=== PATIENT | female | born 1940 | race Caucasian/White ===

== ENCOUNTER → 2016-12-10 | Outpatient (CLI) | payer BC ==
[~2016-12-10] MED LIST: ASPI1TAB83 PO; CALC200T PO; CHOL20005 PO; ESCI1TAB6 PO; FISH1CAP3 PO; GLUCTAB7 PO; LEVO50TA6 PO; OFLO0.3S OPR; PRED1SUS3 OPR; ZOLP5TAB6 PO
[2016-12-11 06:13] LABS: ESTIMATED AVERAGE GLUCOSE 154 mg/dl; HA1C FLAG Normal (Normal)
--- NOTE | 2016-12-15 10:05 | CODING QUERY MEDICAL NECESSITY ---
SUPPORTING DIAGNOSIS NEEDED A supporting diagnosis is required for the test/procedure performed on this patient in order for us to be reimbursed by the patient's insurance. Please provide a supporting diagnosis for the following test/procedure listed below next to the test name along with your signature. *If there is no additional diagnosis for this patient that would support the following test/procedure please document that below next to the test/procedure. Test(s)/Procedure(s) that require a supporting diagnosis: * GLYCATED HEMOGLOBIN DIAGNOSIS: * DOS: 12/10/16 Provider Signature: Date: Thank you Radha Haile Health Information Management Once completed, please kindly fax back to [phone] For questions please call [phone]
== END | disposition home or self-care (01) ==
LOC: C.LABBC 12:20
PROVIDERS: ATTEND Internal Medicine
DX: M54.30 Sciatica, unspecified side (principal); E11.9 Type 2 diabetes mellitus without complications

== ENCOUNTER → 2016-12-16 | Outpatient (CLI) | payer BC | END | disposition home or self-care (01) | LOC: C.LAB1850 12:50 | PROVIDERS: ATTEND Internal Medicine | DX: E03.9 Hypothyroidism, unspecified (principal) ==

== ENCOUNTER → 2017-03-16 | Outpatient (CLI) | payer BC ==
[2017-03-16 14:02] LABS: ESTIMATED AVERAGE GLUCOSE 154 mg/dl; HA1C FLAG Normal (Normal)
== END | disposition home or self-care (01) ==
LOC: C.LABBC 11:59
PROVIDERS: ATTEND Internal Medicine
DX: E11.9 Type 2 diabetes mellitus without complications (principal)

== ENCOUNTER → 2017-04-02 | Outpatient (CLI) | payer BC ==
--- NOTE | 2017-04-02 12:35 | DIAGNOSTIC IMAGING REPORT ---
MRI LUMBAR SPINE WITHOUT IV CONTRAST CLINICAL HISTORY: Chronic low back pain. Right lower extremity radiculopathy. COMPARISON STUDY: Radiographs of the lumbar spine dated 04/24/2015. MRI of the lumbar spine dated 09/15/2008. TECHNIQUE: MRI of the lumbar spine is performed utilizing various T1 and T2 weighted sequences in the axial and sagittal planes. IV contrast was not administered for this examination. FINDINGS: Lumbar spine: Vertebral body height is maintained throughout the lumbar spine. There is normal anterolisthesis at L4-L5. Alignment is otherwise preserved. No destructive bony lesion is seen. The transverse and spinous processes are intact as visualized. There is no evidence of spondylolysis. Advanced chronic degenerative endplate change and sclerosis is seen at L2-L3. Mild chronic degenerative endplate change is present at L4-L5 and L5-S1. Mild marrow edema is seen at L2-L3. Intervertebral discs: Degenerative disc desiccation is seen throughout the lumbar spine. There is advanced loss of height at L2-L3 and moderate loss of height at L3-L4. Only mild loss of height is seen at the remaining disc levels. Spinal cord: The visualized spinal cord is normal in morphology and signal intensity. The conus medullaris terminates at the level of L1. The nerve roots of the cauda equina are normal in morphology. L1-L2: Unremarkable. L2-L3: There is broad-based posterior disc bulge eccentric to the left. This causes left-sided subarticular stenosis and may abut the exiting left L2 nerve root. There is no significant acquired compromise of the central canal at this level. The neural foramina are patent. L3-L4: There is broad-based posterior disc bulge. In conjunction with hypertrophy of the ligamentum flavum this causes mild central canal stenosis at this level. The minimum AP canal diameter measures 8.5 mm. There is bilateral subarticular stenosis. The disc bulge may abut the transiting bilateral L4 nerve roots. Facet arthropathy is of no consequence. L4-L5: There is broad-based posterior disc bulge with annular fissure. In conjunction with hypertrophy of the ligamentum flavum there is minimal acquired compromise of the central canal at this level with a minimum AP diameter of 7.5 mm. There is bilateral subarticular stenosis. The neural foramina are clear. Facet arthropathy is of no consequence. L5-S1: There is minimal disc bulge eccentric to the right. The central canal and neural foramina are patent. Facet arthropathy is of no consequence. Sacrum: Visualized sacrum is normal in morphology and signal intensity. A hemangioma is suggested in the medial left ilium. Soft tissues: There is fatty atrophy of the paraspinous musculature. The kidneys demonstrate mild cortical atrophy. The retroperitoneal structures are otherwise grossly unremarkable although incompletely assessed. IMPRESSION: 1. Lumbosacral spondylosis as above with mild acquired compromise of the central canal at L3-L4 and L4-L5. This has minimally progressed from the 2008 examination. 2. See discussion for detailed level by level analysis. 3. Degenerative disc disease as above with chronic endplate change and marrow edema seen at L2-L3. 4. No destructive bony lesion is seen. Dictated: 04/02/2017 10:22 AM Transcribed: 04/02/2017 12:35 PM [email or web address] Electronically signed by: Samuel Bojorquez M.D. 04/02/2017 12:36 PM Dictated Date/Time: 04/02/2017 10:22 AM
== END | disposition home or self-care (01) ==
LOC: C.MRI 09:32
PROVIDERS: ATTEND Internal Medicine
DX: M54.41 Lumbago with sciatica, right side (principal); M47.897 Other spondylosis, lumbosacral region; M51.36 Other intervertebral disc degeneration, lumbar region

== ENCOUNTER → 2017-06-16 | Outpatient (CLI) | payer BC ==
[2017-06-16 13:59] LABS: ESTIMATED AVERAGE GLUCOSE 154 mg/dl; HA1C FLAG Normal (Normal)
== END | disposition home or self-care (01) ==
LOC: C.LABBC 09:45
PROVIDERS: ATTEND Internal Medicine
DX: E11.9 Type 2 diabetes mellitus without complications (principal)

== ENCOUNTER → 2017-07-16 | Outpatient (CLI) | payer BC ==
--- NOTE | 2017-07-17 07:44 | MAMMOGRAPHY REPORT ---
BILATERAL DIGITAL SCREENING MAMMOGRAM WITH CAD: 07/16/2017 CLINICAL HISTORY: Routine screening. Patient has no complaints. TECHNIQUE: Current study was also evaluated with a Computer Aided Detection (CAD) system. Bilateral CC and MLO views were obtained. COMPARISON: Comparison is made to exams dated: 07/09/2016 mammogram, 07/03/2015 mammogram, 06/29/2014 ilya mogram, 06/28/2013 mammogram, 06/23/2012 mammogram, and 06/11/2011 mammogram - [facility] er. BREAST COMPOSITION: There are scattered areas of fibroglandular density in both breasts. FINDINGS: No suspicious masses, calcifications, or areas of architectural distortion are noted in ei ther breast. There has been no significant interval change compared to prior exams. Scattered bilater al benign-appearing calcifications are not significantly changed. IMPRESSION: ACR BI-RADS CATEGORY 2: BENIGN There is no mammographic evidence of malignancy. A 1 year screening mammogram is recommended. The pa tient will receive written notification of the results. Approximately 10% of breast cancers are not detected with mammography. A negative mammographic report should not delay biopsy if a clinically suggestive mass is present. Aliya Jimenez M.D. ah/:07/16/2017 16:54:43 Package Delivery Room Service Runner: Maya CHIRINOS(R)(M), [facility] letter sent: Normal 1/2 BI-RADS Code: ACR BI-RADS Category 2: Benign
== END | disposition home or self-care (01) ==
LOC: C.MAMM 15:30
PROVIDERS: ATTEND Internal Medicine
DX: Z12.31 Encounter for screening mammogram for malignant neoplasm of breast (principal)

== ENCOUNTER → 2017-11-30 | Outpatient (CLI) | payer BC ==
[2017-11-30 13:27] LABS: BASO % 0.4 %; BASO ABS # 0.03 K/uL (0-0.2); EOS % 4.4 %; EOS ABS # 0.35 K/uL (0-0.5); HEMATOCRIT 42.6 % (37-47); HEMOGLOBIN 14.2 g/dL (12.0-16.0); IG# 0.02 K/uL (0.00-0.02); LYMPH % 30.3 %; MEAN CELL VOLUME 89.5 fL (80-100); MEAN CORPUSCULAR HEMOGLOBIN 29.8 pg (25-34); MEAN CORPUSCULAR HGB CONC 33.3 g/dl (32-36); MEAN PLATELET VOLUME 10.2 fL (7.4-10.4); MONO % 8.5 %; MONO ABS # 0.67 K/uL (0.11-0.59); NEUT % 56.1 %; NEUT ABS # 4.45 K/uL (1.4-6.5); PLATELET COUNT 247 K/uL (130-400); RED CELL DISTRIBUTION WIDTH CV 12.8 % (11.5-14.5); RED CELL DISTRIBUTION WIDTH SD 41.9 fL (36.4-46.3); WHITE BLOOD COUNT 7.92 K/uL (4.8-10.8)
[2017-11-30 13:37] LABS: HEMOGLOBIN A1C 7.3 % (4.5-5.6)
[2017-11-30 14:32] LABS: BLOOD UREA NITROGEN 16 mg/dl (7-18); CALCIUM 9.9 mg/dl (8.5-10.1); CARBON DIOXIDE 27 mmol/L (21-32); CREATININE 0.83 mg/dl (0.60-1.20); GLUCOSE 153 mg/dl (70-99); POTASSIUM 4.3 mmol/L (3.5-5.1); SODIUM 135 mmol/L (136-145)
[2017-11-30 14:44] LABS: CHOLESTEROL 163 mg/dl (0-200); LDL CHOLESTEROL CALCULATED 83 mg/dl
== END | disposition home or self-care (01) ==
LOC: C.LABBC 09:55
PROVIDERS: ATTEND Internal Medicine
DX: E11.9 Type 2 diabetes mellitus without complications (principal)

== ENCOUNTER → 2017-12-07 | Outpatient (CLI) | payer BC ==
--- NOTE | 2017-12-07 08:52 | DIAGNOSTIC IMAGING REPORT ---
GI SERIES W/AIR ROUTINE CLINICAL HISTORY: R13.19 Intermittent [id number] COMPARISON STUDY: None. FLUOROSCOPY TIME: 1.6 minutes. 23 fluoroscopic spot images. FINDINGS: The patient swallowed barium without difficulty. Small hiatus hernia. No significant gastroesophageal reflux demonstrated during the examination. The esophagus is normal in course and caliber. No gastric ulcerations. The duodenal bulb and duodenal C sweep are within normal limits. IMPRESSION: Small hiatus hernia. Electronically signed by: Kyle Ruiz M.D. 12/07/2017 8:51 AM Dictated Date/Time: 12/07/2017 8:50 AM
== END | disposition home or self-care (01) ==
LOC: C.RAD 07:54
PROVIDERS: ATTEND Internal Medicine
DX: R13.19 Other dysphagia (principal)

== ENCOUNTER → 2017-12-11 | Outpatient (CLI) | payer BC ==
--- NOTE | 2017-12-11 09:15 | DIAGNOSTIC IMAGING REPORT ---
(BARIUM SWALLOW) ESOPHAGUS CLINICAL HISTORY: R13.19 Intermittent [id number] COMPARISON STUDY: 12/07/2017 FLUOROSCOPY TIME: 1.6 minutes. FINDINGS: Patient initiated swallowing function well. No evidence for aspiration. Mild esophageal irritability. Small hiatal hernia. Moderate gastroesophageal reflux. Patient ingested the barium tablet easily which passed easily to the stomach. IMPRESSION: 1. Mild esophageal spasm and/or irritability. 2. Small hiatal hernia. 3. Moderate gastroesophageal reflux The above report was generated using voice recognition software. It may contain grammatical, syntax or spelling errors. Electronically signed by: Femi España M.D. 12/11/2017 9:14 AM Dictated Date/Time: 12/11/2017 9:12 AM
== END | disposition home or self-care (01) ==
LOC: C.RAD 08:21
PROVIDERS: ATTEND Internal Medicine
DX: R13.19 Other dysphagia (principal); K44.9 Diaphragmatic hernia without obstruction or gangrene; K21.9 Gastro-esophageal reflux disease without esophagitis

== ENCOUNTER 2019-05-23 08:26 | Observation (INO) ==
--- NOTE | 2019-05-11 13:36 | Anesthesiology Consultation ---
Date of Service May 11, 2019 Assessment & Plan (1) Encounter for pre-operative examination: Chart Review Chart Review: Acceptable Risk for Surgery and Patient seen in Pre Admission Testing Teaching & Discussion Instructed NPO after midnight before surgery, except medications with 15 cc of water. Medication instructions provided according to the PAT guidelines. History Surgery Operation Date: 05/23/19 10:00 Proposed Procedures p Left Open Inguinal Hernia Repair - Rene Matias MD, FACS Height/Weight Height: 5 ft 3 in Weight: 73.8 kg Allergies Allergy/AdvReac Type Severity Reaction Status Date / Time No Known Allergies Allergy Verified 05/09/19 15:13 Medications Home Medications Medication Instructions Recorded Confirmed Last Taken aspirin [Aspir-81] 81 mg PO QAM 03/14/19 05/09/19 03/25/19 08:00 calcium carbonate [Calcium 600] 600 mg PO QAM 03/14/19 05/09/19 03/25/19 08:00 diazepam 2.5 mg PO BID PRN 03/14/19 05/09/19 03/25/19 22:00 escitalopram oxalate 20 mg PO BID 03/14/19 05/09/19 02/25/19 22:00 glucosamine sulfate [Glucosamine] 500 mg PO QAM 03/14/19 05/09/19 03/25/19 08:00 levothyroxine 88 mcg PO QAM 03/14/19 05/09/19 03/25/19 08:00 trazodone 50 mg PO HS 03/14/19 05/09/19 03/27/19 22:00 Past Medical History Medical History Anxiety Cancer BCC Depression Hypothyroidism Osteoarthritis Type 2 diabetes mellitus A1C 6.9%, no medications, diet managed Exercise / Class Metabolic Activity II 4-5 Yardwork/Stairs/Walk up hill (Pt is very active at home, denies CP or SOB with 1 FOS) Past Family History Family History Mother Family history of diabetes mellitus Past Surgical History Surgical History History of appendectomy History of cataract surgery RT/LEFT History of colonoscopy History of laparoscopy OVARIAN CYSTECTOMY History of repair of rotator cuff RT History of tooth extraction Past Anesthesia History No Hx of Anesthesia Complications and No Family Hx of Anesthesia Complications History of PONV No Hx of PONV and No Hx of Motion Sickness Social History Smoking Status: Never smoker Do You Dip or Chew Tobacco: No Hx Alcohol Use: No Hx Substance Use: No substance use type: does not use Review of Systems Pt denies any recent chest pain, shortness of breath, palpitations, cough, fever or URI. Physical Exam Vital Signs BP: 97/55 (pt reports this is somewhat low for her, usually systolic 110-120, but denies symptoms) P: 67bpm SPO2: 95% RA T: 98.1 F R: 16 ENMT Mouth: + dental bridge and + dental restorations (several caps); no dentures, no chipped teeth and no loose teeth Thyromental Distance: > or= 3.5 Finger Breadths (3.5) Mallampati Class: III Neck + short neck; neck extension not limited Respiratory normal respiratory effort Auscultation: lungs clear to auscultation bilaterally Cardiovascular Rate/Rhythm: regular rate and regular rhythm Heart Sounds: no murmur Vessels: no carotid bruit Extremities: no edema Testing Laboratory Results 04/21/19 WBC: 6.30 H/H: 13.5/41.4 PLATELETS: 246 SODIUM: 139 POTASSIUM: 4.4 CHLORIDE: 106 CO2: 26 BUN: 21 CREATININE: 0.83 GLUCOSE: 120 A1C: 6.9% Electrocardiogram Date: 05/11/19 Findings: + NSR @ (63) Left axis deviation. Compared to 2012 EKG, no significant change.
--- NOTE | 2019-05-11 13:36 | PAT Medication Instructions ---
Medication Instructions Date of Service May 11, 2019 Home Medications aspirin [Aspir-81] 81 mg PO QAM calcium carbonate [Calcium 600] 600 mg PO QAM diazepam 2.5 mg PO BID PRN escitalopram oxalate 20 mg PO BID glucosamine sulfate [Glucosamine] 500 mg PO QAM levothyroxine 88 mcg PO QAM trazodone 50 mg PO HS ASK your surgeon for instructions aspirin [Aspir-81] 81 mg PO QAM STOP taking 2 weeks before surgery glucosamine sulfate [Glucosamine] 500 mg PO QAM DO NOT take the morning of surgery calcium carbonate [Calcium 600] 600 mg PO QAM Take morning of surgery With a small sip of water, OTHERWISE NOTHING TO EAT OR DRINK AFTER MIDNIGHT: escitalopram oxalate 20 mg PO BID levothyroxine 88 mcg PO QAM Take evening before surgery diazepam 2.5 mg PO BID PRN escitalopram oxalate 20 mg PO BID trazodone 50 mg PO HS Other Notes If you have any questions please call us at [phone] or [phone] or [phone] or [phone]
[~2019-05-23 08:26] MED LIST changes: -ASPI1TAB83 PO; -CALC200T PO; +CEFAZOLIN 2000MG 2,000 MG/15 ML SYR IV SCH; -CHOL20005 PO; -ESCI1TAB6 PO; -FISH1CAP3 PO; -GLUCTAB7 PO; -LEVO50TA6 PO; +LR 15ML/HR IV SCH; -OFLO0.3S OPR; -PRED1SUS3 OPR; -ZOLP5TAB6 PO
[2019-05-23] MEDS ORDERED: HYDROmorphone INJ 1 MG/ML SYRINGE IV PRN (08:51)
[2019-05-23] MEDS ORDERED: ePHEDrine sulfate 50 MG/ML AMP IV PRN (08:51)
[2019-05-23] MEDS ORDERED: ATROPINE SULFATE 0.1 MG/ML 10ML SYR IV PRN (08:51)
[2019-05-23] MEDS ORDERED: ONDANSETRON INJ 2 MG/ML 2 ML VIAL IV PRN ×2 (08:51→12:23)
[2019-05-23] MEDS ORDERED: fentaNYL citrate 100 MCG/2 ML VIAL IV PRN (08:51)
[2019-05-23] MEDS ORDERED: fentaNYL citrate 100 MCG/2 ML VIAL ONE (09:04)
[2019-05-23] MEDS ORDERED: BUPIVACAINE 0.5 % 5 MG/1 ML MPF 30ML VIAL ONE (10:02)
[2019-05-23] MEDS ORDERED: LIDOCAINE HCL 1% 20 ML VIAL ONE (10:03)
[2019-05-23] MEDS ORDERED: CEFAZOLIN 250 MG/ML 1 GM VIAL ONE (10:03)
--- NOTE | 2019-05-23 10:09 | History & Physical Bridge Note ---
Date of Service May 23, 2019 History & Physical Bridge Note I have examined the patient, reviewed the History & Physical and in the interval since the performance of the History & Physical I have noted the following changes of clinical significance: no changes noted
[2019-05-23] MEDS ORDERED: PROPOFOL IV EMULSION 10 MG/ML 20 ML VIAL IV ONE (10:30)
[2019-05-23] MEDS ORDERED: ONDANSETRON INJ 2 MG/ML 2 ML VIAL ONE (10:30)
[2019-05-23] MEDS ORDERED: LIDOCAINE HCL 2% 2 ML VIAL/AMP(20MG/ML) INFIL ONE (10:30)
[2019-05-23] MEDS ORDERED: DEXAMETHASONE SOD INJ 4 MG/ML VIAL ONE (10:30)
--- NOTE | 2019-05-23 11:08 | Operative Report ---
Post Operative Report Pre & Post Diagnosis Operation Date: 05/23/19 10:00 Pre-Op Diagnosis: Left Inguinal Hernia Post-Op Diagnosis: Left Inguinal Hernia- indirect defect Procedure Operation Date: 05/23/19 10:00 Actual Procedures p Left Open Inguinal Hernia Repair(Left) - Rene Matias MD, FACS Surgeon Rene Matias MD, FACS Electrical Instrument Repairer Juan Luis De La Torre Estimated Blood Loss 10 Findings Consistent with Post-Op Diagnosis Specimens none Description of Procedure see dictation I attest to the content of the Intraoperative Record and any orders documented therein. Any exceptions are noted below.
[2019-05-23] MEDS ORDERED: ACETAMINOPHEN 1,000 MG/100 ML VIAL IV ONE (11:13)
[2019-05-23] MEDS ORDERED: ACETAMINOPHEN 1000 MG/100 ML IV IV ONE (11:37)
[2019-05-23] MEDS ORDERED: PROMETHAZINE HCL 12.5 MG in SODIUM CHLORIDE 0.9% 50 ML IV PRN (12:23)
[2019-05-23] MEDS ORDERED: HYDROmorphone INJ 0.5 MG/0.5 ML SYR IV PRN (12:23)
[2019-05-23] MEDS ORDERED: SODIUM CHLORIDE 0.9% 1000ML 1,000 ML IV SCH (12:23)
[2019-05-23] MEDS ORDERED: HYDROCODONE/ACETAMOPHEN 5/325MG TAB PO PRN ×2 (12:23)
--- NOTE | 2019-05-23 13:59 | Anesthesiology Progress Note ---
Date of Service May 23, 2019 Anesthesia Post Procedure Vital Signs Vital Signs: Temp Pulse Pulse Resp BP BP Pulse Ox 05/23/19 13:16 36.7 C 75 16 112/58 L 97 05/23/19 12:45 74 15 137/58 L 98 05/23/19 12:15 36.5 C 78 16 124/68 94 05/23/19 12:00 76 16 135/66 99 05/23/19 11:45 36.5 C 76 16 143/65 H 100 05/23/19 11:35 81 16 139/68 100 05/23/19 11:25 79 16 144/68 H 100 05/23/19 11:19 36.0 C L 77 16 138/67 100 05/23/19 08:55 36.6 C 68 18 139/92 98 Transfer of Care Handoff Completed per policy Notes Mental Status: alert / awake / arousable and participated in evaluation Patient Amnestic to Procedure: Yes Nausea / Vomiting: adequately controlled Pain: adequately controlled Airway Patency, RR, SpO2: stable & adequate BP & HR: stable & adequate Hydration State: stable & adequate Anesthetic Complications: no major complications apparent and Pt Satisfied with anesthetic care
[2019-05-23] MEDS ORDERED: GLUCAGON FOR INJ 1 MG VIAL SQ PRN (16:17)
[2019-05-23] MEDS ORDERED: GLUCOSE 10 TABS/TUBE PO PRN (16:17)
[2019-05-23] MEDS ORDERED: GLUCOSE 40% GEL 15 GM TUBE PO PRN (16:17)
[2019-05-23] MEDS ORDERED: DEXTROSE 50% 50 ML SYRINGE IV PRN (16:17)
[2019-05-23] MEDS ORDERED: CARBOHYDRATES FOR HYPOGLYCEMIA PO PRN (16:17)
--- NOTE | 2019-05-23 16:17 | Hospitalist Consultation ---
Date of Consultation May 23, 2019 Assessment & Plan (1) Depression: For the patient's depression she states lesser Lexapro 20. Although diazepam is listed on her medication when she does not take it very often. She takes trazodone for sleep (2) Hypothyroidism: She appears clinically euthyroid, TSH and thyroxine were both checked in March and are in good condition continue Synthroid 88 mcg a day (3) Prediabetes: Patient has prediabetes listed on her problem list, last hemoglobin A1c in March was 6.9 she is diet controlled at this point time will make sure she is a diabetic diet have a very loose sliding scale ordered case her blood glucoses go over 180 current postoperative glucoses are 120 (4) DVT prophylaxis: Current DVT prophylaxis will be SCDs and early ambulation History of Present Illness Attending Physician: Rene Matias MD, FACS 05/23/19 Anesthesia Type: General Left Open Inguinal Hernia Repair Surgeon: Rene Matias History of Present Illness We have been asked to see this patient in the postoperative period for medical management. This patient suffers from depression hypothyroidism some insomnia and hypothyroidism. She does not tolerate her procedure very well and he has minimal discomfort she is awake alert her is at the bedside in no particular questions at this time Allergies Allergy/AdvReac Type Severity Reaction Status Date / Time No Known Allergies Allergy Verified 05/23/19 08:52 Home Medications Home Medications Medication Instructions Recorded Confirmed Type aspirin [Aspir-81] 81 mg PO QAM 03/14/19 05/23/19 History calcium carbonate [Calcium 600] 600 mg PO QAM 03/14/19 05/23/19 History diazepam 2.5 mg PO BID PRN 03/14/19 05/23/19 History escitalopram oxalate 20 mg PO BID 03/14/19 05/23/19 History glucosamine sulfate [Glucosamine] 500 mg PO QAM 03/14/19 05/23/19 History levothyroxine 88 mcg PO QAM 03/14/19 05/23/19 History trazodone 50 mg PO HS 03/14/19 05/23/19 History cephalexin [Keflex] 500 mg PO TID #15 cap 05/23/19 Rx hydrocodone-acetaminophen [Winter] 1 - 2 tab PO Q6H PRN #30 tab 05/23/19 Rx Patient History Medical History Anxiety Cancer BCC Depression Hypothyroidism Osteoarthritis Type 2 diabetes mellitus A1C 6.9%, no medications, diet managed Surgical History History of appendectomy History of cataract surgery RT/LEFT History of colonoscopy History of laparoscopy OVARIAN CYSTECTOMY History of repair of rotator cuff RT History of tooth extraction Family History Mother Family history of diabetes mellitus Social History Preferred Language: Yakut Communication Ability: Effective Fountain Clerk Required: No Beliefs That Will Affect Care: None Current Living Situation: Spouse Other Information That Helps Us Care for You: No Feels Safe at Home: Yes Safety Concerns: Feels Safe At This Time Smoking Status: Never smoker Do You Dip or Chew Tobacco: No Second Hand Exposure: No Tobacco Cessation Education Requested by Patient: No Hx Alcohol Use: No Hx Substance Use: No Review of Systems Review of Systems: ROS: well nourished well developed. No double vision blurry vision No problems with speech or swallowing No palpitations, chest pain or pressure No Wheezing or breathing issues Mild left lower quadrant abdominal pain which is dull without nausea vomiting No burning urine urine frequency or changes in color No focal joint pain or muscle pain No skin rashes or oral lesions No unusual bruising or bleeding No focused back pain or numbness or loss of strength No changes in memory or confusion Physical Exam Physical Exam: The patient appeared well nourished and normally developed. Vital signs as documented. Head exam is unremarkable. normocephalic, atraumatic Neck is without jugular venous distension, thyromegaly, or lymphademopathy Lungs are clear to auscultation and percussion. Cardiac exam reveals Rhythm is regular. First and second heart sounds normal. Abdominal exam reveals normal bowel sounds, the dressing in the left lower quadrant her abdomen is otherwise without bruising soft Extremities are nonedematous and both pedal pulses are present Neurologic exam is A&Ox3, no focal deficits, strength is equal bilateral Psychologically seems neither anxious or depressed Skin is warm Dry without bruises or lesions Results & Data Vital Signs (Past 12 Hours) Vital Signs Temp Pulse Pulse Resp BP BP Pulse Ox 05/23/19 15:20 36.8 C 74 18 104/63 94 05/23/19 14:14 36.6 C 74 16 105/59 L 95 05/23/19 13:16 36.7 C 75 16 112/58 L 97 05/23/19 12:45 74 15 137/58 L 98 05/23/19 12:15 36.5 C 78 16 124/68 94 05/23/19 12:00 76 16 135/66 99 05/23/19 11:45 36.5 C 76 16 143/65 H 100 05/23/19 11:35 81 16 139/68 100 05/23/19 11:25 79 16 144/68 H 100 05/23/19 11:19 36.0 C L 77 16 138/67 100 05/23/19 08:55 36.6 C 68 18 139/92 98 PG Care Time/CCT Total # of Minutes Spent Total Time Spent with Patient: Total time spent is greater than 50% in coordination of care (as documented) at patient's floor/unit and/or counseling patient:
[2019-05-23] MEDS: ACETAMINOPHEN 325 MG TAB PO PRN (17:18)
[2019-05-23] MEDS: INSULIN ASPART 100 UNITS/ML 3 ML PEN SC SCH ×2 (17:21→20:44)
[2019-05-23] MEDS: CEFAZOLIN 1000MG 1,000 MG/7.5 ML SYR IV SCH (18:45)
[2019-05-23] MEDS: DOCUSATE SODIUM/SENNA 50/8.6MG TAB PO SCH (20:32)
--- NOTE | 2019-05-23 20:35 | Operative Report ---
DATE OF OPERATION: 05/23/2019 DATE OF OPERATION: 05/23/2019 NAME OF OPERATION: Open left inguinal hernia repair. PREOPERATIVE DIAGNOSIS: Left inguinal hernia. POSTOPERATIVE DIAGNOSIS: Left inguinal hernia with indirect defect. STAFF SURGEON: Rene Matias MD. MEDIA MARKETING MANAGER: Joel De La Torre PA-C ANESTHESIA: General. PROCEDURE: The patient was brought in the operating room and placed on the operating table in supine position. Her lower abdomen was prepped and draped in usual fashion. A 0.5% plain Marcaine was used to anesthetize skin and subcutaneous tissue on the left side parallel to the inguinal ligament. Incision made carrying dissection down through adipose tissue to the external oblique fibers. These were incised along their length to the external ring, mobilizing the inguinal contents which was turned out to be a hernia sac and then the round ligament. The ligament was ligated distally using 0 chromic suture and also a 2-0 silk suture. The hernia sac was then reduced and then the defect reinforced using a mesh plug, secured to surrounding tissue using 2-0 Ethibond suture, then a large mesh patch placed into the floor of the canal, secured to surrounding tissue using 2-0 Ethibond suture, then the external oblique fibers closed over the mesh using 2-0 Ethibond suture. The site was irrigated with antibiotic solution and then anesthetized using 0.5% plain Marcaine. Subcutaneous tissue reapproximated using 2-0 plain suture and then the skin reapproximated using 4-0 nylon suture and Steri-Strips. The patient was transferred to recovery room in stable condition. I attest to the content of the Intraoperative Record and any orders documented therein. Any exception s are noted below.
[2019-05-23] MEDS ORDERED: TRAZODONE HCL 50 MG TAB PO SCH (21:00)
[2019-05-24] MEDS: CEFAZOLIN 1000MG 1,000 MG/7.5 ML SYR IV SCH ×2 (03:05→08:57)
[2019-05-24] MEDS: ACETAMINOPHEN 325 MG TAB PO PRN (06:14)
[2019-05-24] MEDS ORDERED: LEVOTHYROXINE SODIUM 88 MCG TABLET PO SCH (06:30)
--- NOTE | 2019-05-24 08:33 | Anesthesiology Progress Note ---
Date of Service May 24, 2019 Anesthesia Post Procedure Vital Signs Vital Signs: Temp Pulse Pulse Resp BP BP Pulse Ox 05/24/19 07:59 36.7 C 76 64 16 109/67 94 05/24/19 07:26 36.7 C 64 16 109/67 94 05/24/19 03:05 36.6 C 69 16 109/61 92 05/23/19 23:23 36.6 C 68 16 109/63 94 05/23/19 20:17 36.8 C 65 20 110/62 95 05/23/19 15:20 36.8 C 74 18 104/63 94 05/23/19 14:14 36.6 C 74 16 105/59 L 95 05/23/19 13:16 36.7 C 75 16 112/58 L 97 05/23/19 12:45 74 15 137/58 L 98 05/23/19 12:15 36.5 C 78 16 124/68 94 05/23/19 12:00 76 16 135/66 99 05/23/19 11:45 36.5 C 76 16 143/65 H 100 05/23/19 11:35 81 16 139/68 100 05/23/19 11:25 79 16 144/68 H 100 05/23/19 11:19 36.0 C L 77 16 138/67 100 05/23/19 08:55 36.6 C 68 18 139/92 98 Pain Intensity Left Groin: Pain Intensity: 8 Notes Mental Status: alert / awake / arousable and participated in evaluation Patient Amnestic to Procedure: Yes Nausea / Vomiting: adequately controlled Pain: adequately controlled Airway Patency, RR, SpO2: stable & adequate BP & HR: stable & adequate Hydration State: stable & adequate Anesthetic Complications: no major complications apparent and Pt Satisfied with anesthetic care
[2019-05-24] MEDS: INSULIN ASPART 100 UNITS/ML 3 ML PEN SC SCH (08:34)
[2019-05-24] MEDS: DOCUSATE SODIUM/SENNA 50/8.6MG TAB PO SCH (08:55)
--- NOTE | 2019-05-24 10:51 | Discharge Summary ---
PRINCIPAL DIAGNOSIS: Left inguinal hernia. PROCEDURES: The patient underwent open left inguinal hernia repair. HISTORY OF PRESENT ILLNESS AND HOSPITAL COURSE: The patient is an 78-year-old female with a left inguinal hernia. She was brought into the hospital for elective repair and kept for observation, mostly because of her age. She has done quite well and is felt stable for discharge home to be followed in the surgical clinic within 1-2 weeks.
== END 2019-05-24 10:49 | disposition home or self-care (01) ==
LOC: ASU 08:26 → 3N 08:26